=== PATIENT | female | born 1980 | race Caucasian/White ===

== ENCOUNTER 2023-08-29 08:21 | Day surgery (SDC) | payer OTHER ==
[2023-08-29] MEDS ORDERED: Xylocaine-Mpf 2% 5 Ml Vial IJ ONE (08:22)
[2023-08-29] MEDS ORDERED: Depo-Medrol 40 MG/ML IM ONE (08:22)
[2023-08-29 09:31] LABS: HCG URINE TEST NEGATIVE (NEGATIVE)
[2023-08-29] MEDS ORDERED: DIPRIVAN 200 MG/20 ML IV ONE (10:50)
--- NOTE | 2023-08-29 11:54 | XRAY ---
Indication: Bilateral L4-S1 MBB. Intraoperative fluoroscopy provided for 21 seconds. Single digital spot image submitted for interpretation demonstrates posterior needle tips projecting over the expected left and right L4-S1 nerve roots. Correlate with intraoperative findings/report.
[2023-08-29] MEDS ORDERED: Lactated Ringers 1,000 ML IV ONE (12:13)
--- NOTE | 2023-08-29 12:55 | XRAY ---
21 seconds of fluoroscopy was used in surgery for a bilateral L4-S1 MBB.
== END 2023-08-29 11:45 | disposition home or self-care (01) ==
LOC: SDC-PAIN 08:21
PROVIDERS: ATTEND Psychiatry & Neurology Pain Medicine
DX: M47.817 Spondylosis without myelopathy or radiculopathy, lumbosacral region (principal); E11.9 Type 2 diabetes mellitus without complications
CPT/HCPCS: 64493; 64494; 72020; 77002; 81025; 82947; J1010; J2704

== ENCOUNTER 2023-11-07 09:01 | Day surgery (SDC) | payer OTHER ==
[2023-11-07] MEDS ORDERED: Depo-Medrol 40 MG/ML IM ONE (09:02)
[2023-11-07] MEDS ORDERED: BUPIVACAINE 0.5% VIAL IJ ONE (09:02)
[2023-11-07 09:18] LABS: HCG URINE TEST NEGATIVE (NEGATIVE)
[2023-11-07] MEDS ORDERED: DIPRIVAN 200 MG/20 ML IV ONE (10:32)
[2023-11-07] MEDS ORDERED: Lactated Ringers 1,000 ML IV ONE (11:57)
--- NOTE | 2023-11-07 12:57 | XRAY ---
Indication: Bilateral SI joint injection. Intraoperative fluoroscopy provided for 28 seconds. 2 digital spot image submitted for interpretation demonstrates posterior needle tips projecting over the expected left and right SI joints. Small amount of contrast injected for needle tip placement. Correlate with intraoperative findings/report.
--- NOTE | 2023-11-07 14:37 | XRAY ---
28 seconds of fluoroscopy was used in surgery for bilateral SI joint injections.
== END 2023-11-07 11:00 | disposition home or self-care (01) ==
LOC: SDC-PAIN 09:01
PROVIDERS: ATTEND Psychiatry & Neurology Pain Medicine
DX: M46.1 Sacroiliitis, not elsewhere classified (principal); E11.9 Type 2 diabetes mellitus without complications
CPT/HCPCS: 27096; 72202; 77002; 81025; 82947; J2704; Q9966; G0260